=== PATIENT | female | born 1995 | race Caucasian/White ===

== ENCOUNTER 2021-04-28 07:01 | Day surgery (SDC) | payer OTHER ==
[2021-04-28] MEDS ORDERED: ESMOLOL 100 MG/10 ML VIAL IVP ONE (07:02)
[2021-04-28 07:27] LABS: HCG UR QUAL NEGATIVE
[2021-04-28] MEDS ORDERED: EPINEPHrine 1 MG/ML AMP ONE (07:35)
[2021-04-28] MEDS ORDERED: MINERAL OIL/PETROLAT OPHTH OINT ONE (07:35)
[2021-04-28] MEDS ORDERED: BACITRACIN ZINC OINT 1 PACKET TOP ONE (07:35)
[2021-04-28] MEDS ORDERED: OXYMETAZOLINE HCL 100 SPRAYS BOTTLE ONE ×2 (07:36→08:07)
[2021-04-28] MEDS ORDERED: CHLORHEXIDINE GLUCONATE 15 ML UDC PO ONE (07:39)
[2021-04-28] MEDS ORDERED: LACTATED RINGERS 1,000 ML IV ONE ×2 (07:51→14:47)
--- NOTE | 2021-04-28 07:59 | ANESTHESIA ---
Pre-Anesthesia VS, & Labs - Diagnosis Left jaw pain - Procedure L total jaw arthroplasty Vital Signs: Temp Pulse Resp BP Pulse Ox 36 C L 84 15 110/76 98 04/28/21 07:27 04/28/21 07:27 04/28/21 07:27 04/28/21 07:27 04/28/21 07:27 Height: 5 ft Weight (kg): 59.8 kg Body Mass Index: 25.7 BMI Classification: Overweight - NPO >8 hours - Is Patient ?: No - Lab Results Lab results reviewed: No Home Medications and Allergies Home Medications: Ambulatory Orders Control Pill 1 tab PO DAILY 04/22/21 Control Pill 1 tab PO DAILY 04/22/21 Allergies/Adverse Reactions: Allergies Allergy/AdvReac Type Severity Reaction Status Date / Time No Known Drug Allergies Allergy Verified 04/22/21 14:39 Anes History & Medical History - Anesthetic History Anesthesia Complications: reports: No previous complications Family history of Anesthesia Complications: Denies Family history of Malignant Hyperthermia: Denies - Medical History Cardiovascular: reports: None Pulmonary: reports: None Gastrointestinal: reports: None Urinary: reports: None Musculoskeletal: reports: None Endocrine/Autoimmune: reports: None Skin: reports: None Exam General: Alert, Oriented x3, Cooperative Dental: WNL Mouth Openin Fingerbreadth (states she can open farther but it dislocates) Neck Mobility: Normal Mallampati classification: III Thyromental Distance: 4-6 cm Respiratory: Lungs clear, Normal breath sounds, No respiratory distress Cardiovascular: Regular rate Neurological: Normal speech Mental/Cognitive Status: Alert/Oriented X3, Normal for patient Cognitive Status: Within normal limits Plan Anesthesia Type: General Consent for Procedure(s) Verified and Reviewed: Yes Code Status: Attempt Resuscitation ASA classification: 2-Mild systemic disease Is this case an emergency?: No
[2021-04-28] MEDS ORDERED: ATROPINE ABBOJECT 1 MG/10 ML SYRINGE IVP PRN (08:01)
[2021-04-28] MEDS ORDERED: HYDROmorphone 0.5 MG/0.5 ML SYRINGE IVP PRN (08:01)
[2021-04-28] MEDS ORDERED: fentaNYL 100 MCG/2 ML VIAL IVP PRN (08:01)
[2021-04-28] MEDS ORDERED: NALOXONE 0.4 MG/ML VIAL IVP PRN (08:01)
[2021-04-28] MEDS ORDERED: METOCLOPRAMIDE 10 MG/2 ML VIAL IVP PRN (08:01)
[2021-04-28] MEDS ORDERED: ePHEDrine 50 MG/ML VIAL IVP PRN (08:01)
[2021-04-28] MEDS ORDERED: MORPHINE 2 MG/ML CARPUJECT IVP PRN (08:01)
[2021-04-28] MEDS ORDERED: ONDANSETRON 4 MG/2 ML VIAL IVP PRN (08:01)
[2021-04-28] MEDS ORDERED: PROPOFOL 200 MG/20 ML VIAL IVP ONE ×3 (08:08→14:39)
[2021-04-28] MEDS ORDERED: MIDAZOLAM 2 MG/2 ML VIAL ONE (08:09)
[2021-04-28] MEDS ORDERED: LIDOCAINE MPF 2%-EPI 1:200000 20 ML VIAL SUBQ ONE (08:30)
[2021-04-28] MEDS ORDERED: EPINEPHrine 1 MG/ML AMP IR ONE (08:30)
[2021-04-28] MEDS ORDERED: CEFAZOLIN SODIUM IN 0.9 % NACL 2 GM/100 ML BAG IV ONE (08:32)
[2021-04-28] MEDS ORDERED: LIDOCAINE MPF 2%-EPI 1:200000 20 ML VIAL ONE (08:43)
[2021-04-28] MEDS ORDERED: fentaNYL 100 MCG/2 ML VIAL ONE ×3 (08:54→13:12)
[2021-04-28] MEDS ORDERED: LACTATED RINGERS 1,000 ML IV SCH (09:00)
[2021-04-28] MEDS ORDERED: DEXAMETHASONE 10 MG/ML VIAL ONE (09:00)
[2021-04-28] MEDS ORDERED: HYDROmorphone 1 MG/ML CARPUJECT ONE (09:28)
[2021-04-28] MEDS ORDERED: KETAMINE 500 MG/10 ML VIAL ONE (09:59)
[2021-04-28] MEDS ORDERED: ROCURONIUM 50 MG/5 ML VIAL ONE (10:35)
[2021-04-28] MEDS ORDERED: ACETAMINOPHEN 1,000 MG/100 ML 100 ML IV ONE (11:38)
[2021-04-28] MEDS ORDERED: LIDOCAINE-MPF 2% 5 ML VIAL ONE (11:42)
[2021-04-28] MEDS ORDERED: SEVOFLURANE 250 ML LIQUID INH ONE (11:44)
[2021-04-28] MEDS ORDERED: BACITRACIN ZINC OINT 14 GM TOP ONE (11:53)
[2021-04-28] MEDS ORDERED: ceFAZolin 1 GM VIAL ONE (12:34)
[2021-04-28] MEDS ORDERED: VANCOMYCIN 1 GM VIAL MC ONE (12:40)
[2021-04-28] MEDS ORDERED: SODIUM CHLORIDE 0.9% 10 ML VIAL IVP ONE (12:41)
[2021-04-28] MEDS ORDERED: VANCOMYCIN 1 GM VIAL ONE (12:41)
[2021-04-28] MEDS ORDERED: diphenhydrAMINE INJ 50 MG/ML VIAL ONE (13:34)
[2021-04-28] MEDS ORDERED: ONDANSETRON 4 MG/2 ML VIAL ONE (13:34)
[2021-04-28] MEDS ORDERED: KETOROLAC 30 MG/ML VIAL ONE (14:33)
[2021-04-28] MEDS ORDERED: DEXAMETHASONE 4 MG/ML VIAL ONE (14:35)
--- NOTE | 2021-04-28 16:23 | OPERATIVE REPORT ---
Operative Report - General Procedure Date: 04/28/21 Planned Procedure: Total joint arthroplasty of the left temporomandibular joint. 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 She is also experiencing frequent dislocations of the mandible. Clinical and radiographic examination revealed a malformed left temporomandibular joint with a complete lack of and articular eminence. It was decided that total joint arthroplasty was indicated. The risks benefits and alternatives of this plan were discussed with patient including pain swelling bleeding infection, nerve damage, paralysis, numbness, malocclusion, nonunion, hardware failure, need for further surgeries, fell failure to resolve the pain. Adequate time was given to answer all questions and informed consent was obtained Findings: the patient was brought to the main operating room and placed in a supine position on the operating table. General anesthesia was induced by the anesthesia team and the airway was secured with a nasoendotracheal tube. The tube was secured to the forehead in the usual fashion. The eyes were protected with Tegaderms. All pressure points were padded and checked. A formal timeout was executed. The patient was prepped and draped in the standard sterile fashion for a total joint arthroplasty with a fat graft from the umbilicus. Attention was then directed to the left preauricular area. Local anesthesia was not used because of the need for nerve stimulation and the patient was not paralyzed. Instead 1-50,000 epinephrine was injected subcutaneously for a retromandibular incision in her preauricular incision. A retromandibular incision was made with a #15 blade. The subcutaneous tissues were dissected with a combination of blunt and sharp dissection with a tenotomy scissor. A nerve stimulating was used to avoid damage to the temporal branch of the facial nerve. The TMJ capsule was identified. It was entered sharply. And retract the capsule was retracted anteriorly and the zygomatic arch and the condylar head could be visualized. 9. A #9 elevator was used to elevate tissue off around the condylar head and neck and to elevate the tissue off of the articular eminence in the fossa. Attention was then directed to the retromandibular incision. A 2 cm incision was made through skin. Blunt dissection was performed down to the superficial layer of the deep cervical cervical fascia. This layer was investing the parotid gland. The capsule of the parotid gland was incised sharply with a scissor. All the dissection through the parotid gland was performed bluntly in a plane parallel to the plane of the marginal mandibular branch and buccal branch of the facial nerve.both nerves were identified. The buccal branch was retracted superiorly gently and the marginal mandibular branch was retracted inferiorly gently the nerves were protected throughout the case. The pterygomasseteric sling was identified. It was using a Bovie. A #9 periosteal elevator was used to perform a subperiosteal dissection of the entire left angle and ramus of the mandible. The 2 dissections were made to communicate with each other. A bone clamp was fashioned to the inferior border of the mandible. Attention was directed back to the preauricular incision. Using the condylar neck retractors to protect the structures deep to the condylar neck a bur was used to cut off the condylar head. Then the mandible was repositioned superiorly and the second osteotomy was made to remove the entire condylar neck. The margins of this osteotomy were then smoothed with a rasp, taking care to protect the tissues deep to the mandible with a Seldin retractor. Attention was then directed intraorally intermaxillary fixation was placed with hybrid IMF and with a 24-gauge wires. A throat pack was placed prior to any intraoral procedure being performed. The mouth was covered up and scrub was broken and re-scrubbed to maintain a sterile surgical field. Attention was directed back to the left preauricular incision. It was first confirmed that the fossa implant did not interfere with the residual mandible and there was no interference. A fossa implant was then chosen and it was a small fossa implant. It was secured with just 2 screws until we are sure of its position. The mandibular implant was then placed but it was noted that it sat very lateral to the fossa implant was decided to use the rasp to reduce the lateral aspect of the ascending ramus in order for the condylar implant to sit more favorably within the fossa. Under copious irrigation the rasp was used to reduce the lateral aspect of the ramus. The fossa implant now sat very nicely. However the fossa implant did sit somewhat posterior within the I am sorry the condylar implant did sit somewhat posteriorly within the fossa. In 1 attention was directed back intraorally and the intermaxillary fixation was removed. It was found that the mandible all although it was in good occlusion was easily dislocating posterior and off the implant. It was decided to move the fossa implant posteriorly scrub was broken and new gloves were donned. Attention was directed back to the left preauricular incision. The fossa implant was moved posteriorly. It was fixated in place with 4 screws. There was very stable. This also helped the condylar implant set in a more centralized location. The condylar implant was then replaced in a slightly more posterior position. It was fixated in place with 5 screws. IMF was released for the last time and the occlusion was stable and repeatable. The anterior open bite had been closed slightly. There was a definite shift in her occlusion with there being a slight open bite on the left but less than a millimeter. Her mandibular and maxillary dentition now related more favorably than they did prior to the surgery. It was decided to leave her dentition in this position. Attention was directed back to the incisions after breaking scr ub and donning new gloves. The incisions were rinsed copiously with vancomycin irrigation. Attention was directed to the abdominal prep site at the umbilicus. Incision was made with a #15 blade 1.5 cm in length just inferior and inside of the umbilicus the fat was then bluntly dissected out of the out of the wound and placed into saline. The umbilicus incision was then irrigated copiously and closed with the deep layers being closed with 4-0 Vicryl suture and the superficial layer being closed with 4-0 Monocryl. The fat graft was then packed around the joint where it met the fossa implant. The deep layers of the preauricular and preauricular incision were closed with 4-0 Vicryl suture taking care to reapproximate the capsule as tightly as possible over the implant. Then the skin was closed with 5-0 Prolene suture. In the retro-manipular incision the pterygomasseteric sling was reapproximated with 4-0 Vicryl suture then the parotid capsule was reapproximated with a 4-0 Vicryl suture. Then the deep dermal sutures were placed with 4-0 Vicryl suture and then the skin was closed with 5-0 Prolene suture. This marked the end of the procedure the wounds of the left ear were dressed with bacitracin the Tegaderms were removed from the eyes face was cleansed the mouth was rinsed free of debris the throat was suctioned and the throat pack was removed the umbilical wound was dressed with a piece of gauze and a Tegaderm. The Way catheter was removed the patient was emerged uneventfully from anesthesia she was transferred to the PACU in stable condition Complications: none
--- NOTE | 2021-04-28 16:24 | ANESTHESIA POST OP EVALUATION ---
Anesthesia Post Eval - Post Anesthesia Eval Vitals: Last Vital Signs Temp 36.6 C 04/28/21 15:30 Pulse 100 04/28/21 16:00 Resp 17 04/28/21 16:00 BP 123/72 04/28/21 16:00 Pulse Ox 96 04/28/21 16:00 CV Function Including HR & BP: Stable Pain Control: Satisfactory Nausea & Vomiting: Negative Mental Status: Baseline Respiratory Status: Airway Patent Hydration Status: Satisfactory Anesthesia Complications: None
[2021-04-28] MEDS ORDERED: ONDANSETRON ODT 4 MG TABLET TL PRN (16:28)
[2021-04-28] MEDS ORDERED: oxyCODONE 5 MG TABLET PO PRN (16:35)
--- NOTE | 2021-04-28 16:37 | CONSULTATION NOTE ---
Consultation Report: Pt with c/o pain at 4/10 prior to discharge. (1) oxycodone 5mg ordered PO prior to discharge.
[2021-04-28 16:53] VITALS: BP 120/76
== END 2021-04-28 07:02 | disposition home or self-care (01) ==
LOC: SDS 07:01
PROVIDERS: ATTEND Dentist Oral and Maxillofacial Surgery
DX: M26.642 Arthritis of left temporomandibular joint (principal); R25.2 Cramp and spasm; M26.622 Arthralgia of left temporomandibular joint; M26.69 Other specified disorders of temporomandibular joint
CPT/HCPCS: 21242; 81025; A9270; C1713; C1776; J0131; J0690; J1170; J1200; J3370; J3490; J7120; Q0162